=== PATIENT | male | born 1955 | race Caucasian/White ===

== ENCOUNTER 2018-08-07 11:21 | Emergency (ER) | payer MEDICAID, OTHER ==
[2018-08-07 11:33] VITALS: BP 129/82; PULSE 92; RESP 18; TEMP 98.3; O2SAT 98
[2018-08-07] MEDS ORDERED: Lidocaine 5% Patch TD STA (12:00)
[2018-08-07] MEDS ORDERED: Acetaminophen-Codeine 300/30 mg Tab PO STA (12:00)
[2018-08-07] MEDS ORDERED: Acetaminophen-Codeine 300/30 mg Tab PO ONE (12:08)
[2018-08-07] MEDS ORDERED: Lidocaine 5% Patch TD ONE (12:08)
--- NOTE | 2018-08-07 12:09 | C.PDOC ---
History Of Present Illness 62 year old male with no prior medical problems presents to the ED for evaluation of sudden onset of lower back pain s/p bending over to slat pickler an object 2 days ago. The patient reports bending over to slat pickler an object and suddenly feeling pain to his lower back. He admits to taking Motrin with no relief in symptoms. Denies weakness, numbness, tingling, incontinence to urine or stool, saddle anesthesia, and any other associated symptoms. Time Seen by Provider: 08/07/18 11:55 Chief Complaint (Nursing): Back Pain History Per: Patient History/Exam Limitations: no limitations Onset/Duration Of Symptoms: Days Current Symptoms Are (Timing): Still Present Past Medical History Reviewed: Historical Data, Nursing Documentation, Vital Signs Vital Signs: Last Vital Signs Temp 98.3 F 08/07/18 11:30 Pulse 92 H 08/07/18 11:30 Resp 18 08/07/18 11:30 BP 129/82 08/07/18 11:30 Pulse Ox 98 08/07/18 11:30 Family History: States: Unknown Family Hx - Social History Hx Tobacco Use: No Hx Alcohol Use: No Hx Substance Use: No - Immunization History Hx Tetanus Toxoid Vaccination: No Hx Influenza Vaccination: No Hx Pneumococcal Vaccination: No Review Of Systems Except As Marked, All Systems Reviewed And Found Negative. Musculoskeletal: Positive for: Other (lower back pain. ) Physical Exam - Physical Exam Appears: Non-toxic, No Acute Distress Skin: Normal Color, Warm, Dry Head: Atraumatic, Normacephalic Eye(s): bilateral: Normal Inspection, PERRL, EOMI Nose: Normal Oral Mucosa: Moist Neck: Supple Chest: Symmetrical Cardiovascular: Rhythm Regular, No Murmur Respiratory: Normal Breath Sounds, No Rales, No Rhonchi, No Wheezing Back: No Vertebral Tenderness, Paraspinal Tenderness Extremity: Bilateral: Atraumatic, Normal Color And Temperature, Normal ROM, Other ((-) straight leg test. ) Neurological/Psych: Oriented x3, Normal Speech, Normal Motor, Normal Sensation, Normal Reflexes ED Course And Treatment O2 Sat by Pulse Oximetry: 98 (RA) Pulse Ox Interpretation: Normal - Other Rad LS x-ray X-Ray: Interpreted by Me, Viewed By Me Interpretation: preliminary reading: no fracture, no dislocation, no active disease. Medical Decision Making Medical Decision Making: Assessment: lower back pain Plan: -Flexeril -Lidoderm -Motrin -Tylenol/Codeine -LS AP/LAT x-ray Progress/Update: X-ray: preliminary reading no fracture, no dislocation, no active disease. reviewed radiology reading and no report of cancer in patient history. Patient stable for discharge home. Prescribed Naproxen, Lidoderm, and Cyclobenzaprine HCl Disposition Counseled Patient/Family Regarding: Studies Performed, Diagnosis, Need For Followup, Rx Given - Disposition Referrals: [facility] [Outside] Disposition: HOME/ ROUTINE Disposition Time: 12:21 Condition: STABLE Additional Instructions: follow up with medical clinic within 2 days call to make an appointment take medications as needed for pain no heavy lifting return to ER if symptoms worsens or progress Prescriptions: Cyclobenzaprine [Cyclobenzaprine HCl] 10 mg PO TID PRN #12 tab PRN Reason: Muscle Spasm Lidocaine 5% [Lidoderm] 1 ea TD DAILY PRN #10 patch PRN Reason: Pain, Moderate (4-7) Naproxen [Naprosyn] 500 mg PO BID PRN #16 tab PRN Reason: Pain, Moderate (4-7) Instructions: Low Back Pain in Adults Forms: Gen Discharge Inst Fijian, [employer] Connect (Fijian), Work Excuse Print Language: KHMER - Clinical Impression Clinical Impression: Low back pain - Scribe Statement The provider has reviewed the documentation as recorded by the Scribe (Estefany Blakely) Provider Attestation: All medical record entries made by the Scribe were at my direction and personally dictated by me. I have reviewed the chart and agree that the record accurately reflects my personal performance of the history, physical exam, medical decision making, and the department course for this patient. I have also personally directed, reviewed, and agree with the discharge instructions and disposition.
--- NOTE | 2018-08-07 13:04 | RAD ---
Date of service: 08/07/2018 PROCEDURE: Radiographs of the Lumbar Spine. HISTORY: back pain COMPARISON: No prior. FINDINGS: BONES: There is diffuse bone demineralization and multilevel degenerative changes in the spine. There is normal alignment of the lumbar vertebral bodies. There is normal lumbar lordosis. There is no acute fracture, spondylolysis or spondylolisthesis. Bone mineralization is normal. DISC SPACES: The disc heights are maintained. OTHER FINDINGS: No pathologic soft tissue calcifications. There is a focal area of sclerosis along the inferior left sacroiliac joint IMPRESSION: No acute fracture, spondylolysis or spondylolisthesis. Focal area of sclerosis along the inferior left sacroiliac joint is nonspecific and could represent a large bone island however sclerotic metastasis is also a considerations. Correlation with known or suspected history of cancer is advised and if clinically indicated radionuclide scan may be performed for definitive evaluation.
== END 2018-08-07 12:29 | disposition home or self-care (01) ==
LOC: C.ER 11:21
DX: M54.5 Low back pain (principal)

== ENCOUNTER 2018-10-08 11:35 | Inpatient (IN) | payer SELFPAY ==
[2018-10-08 11:37] VITALS: BMI 25.8
--- NOTE | 2018-10-08 11:48 | C.PDOC ---
History Of Present Illness 64 y/o male brought in by EMS for Code Heart, initiated at 11:12 am prior to EMS arrival. 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 Dr. Can notified. Patient received 325 mg Aspirin en route. On arrival patient reports having chest pain since 7:00am described as pressure- like. Associated with SOB. He denies any nausea, vomiting, diaphoresis, abdomina l pain, dizziness, headache, or other complaints. Patient admits to smoking. No known medical history. Time Seen by Provider: 10/08/18 11:35 Chief Complaint (Nursing): Chest Pain History Per: Patient History/Exam Limitations: no limitations Onset/Duration Of Symptoms: Hrs Current Symptoms Are (Timing): Still Present Quality: Pressure Associated Symptoms: Dyspnea Modifying Factors: None Additional History Per: EMS Past Medical History Reviewed: Historical Data, Nursing Documentation, Vital Signs Vital Signs: Last Vital Signs Temp Pulse 77 10/08/18 11:35 Resp 24 10/08/18 11:35 BP 172/118 H 10/08/18 11:35 Pulse Ox 100 10/08/18 11:35 - Medical History PMH: No Chronic Diseases Family History: States: Unknown Family Hx - Social History Hx Tobacco Use: Yes Hx Alcohol Use: No Hx Substance Use: No - Immunization History Hx Tetanus Toxoid Vaccination: No Hx Influenza Vaccination: No Hx Pneumococcal Vaccination: No Review Of Systems Except As Marked, All Systems Reviewed And Found Negative. Constitutional: Negative for: Fever, Sweats Eyes: Negative for: Vision Change Cardiovascular: Positive for: Chest Pain Respiratory: Positive for: Shortness of Breath. Negative for: Cough Gastrointestinal: Negative for: Nausea, Vomiting, Abdominal Pain Musculoskeletal: Negative for: Back Pain Neurological: Negative for: Headache, Dizziness Physical Exam - Physical Exam Appears: Non-toxic, No Acute Distress Skin: Warm, Dry, No Diaphoretic Head: Atraumatic, Normacephalic Eye(s): bilateral: Normal Inspection, PERRL, EOMI Neck: Normal ROM Chest: Symmetrical, No Deformity, No Tenderness Cardiovascular: Rhythm Regular, No Murmur Respiratory: Normal Breath Sounds, No Rales, No Rhonchi, No Wheezing Gastrointestinal/Abdominal: Soft, No Tenderness, No Distention Back: Normal Inspection Extremity: Bilateral: Atraumatic, Normal Color And Temperature Pulses: Left Radial: Normal, Right Radial: Normal Neurological/Psych: Oriented x3 ED Course And Treatment - Laboratory Results Result Diagrams: 10/08/18 11:44 O2 Sat by Pulse Oximetry: 100 (RA) Pulse Ox Interpretation: Normal Medical Decision Making Medical Decision Making: Impression: Acute TN EKG: NSR with normal intervals, normal axis, with ST elevations in leads 2, 3, avF, v4-6 Administered Brilenta. Disposition Discussed With Dr.: Lupe Lima Doctor Will See Patient In The: ED Counseled Patient/Family Regarding: Studies Performed, Diagnosis - Disposition Disposition: HOSPITALIZED Disposition Time: 11:53 Condition: FAIR Forms: [employer] Connect (Emirati) - Clinical Impression Clinical Impression: STEMI (ST elevation myocardial infarction) - Scribe Statement The provider has reviewed the documentation as recorded by the Patricia Najera Provider Attestation: All medical record entries made by the Ronaldoibtara were at my direction and personally dictated by me. I have reviewed the chart and agree that the record accurately reflects my personal performance of the history, physical exam, medical decision making, and the department course for this patient. I have also personally directed, reviewed, and agree with the discharge instructions and disposition.
[2018-10-08 11:49] LABS: BASO % 0.3 % (0.0-2.0); EOS % 0.1 % (0.0-4.0); HEMOGLOBIN 16.2 g/dL (12.0-18.0); LYMPH # 1.2 K/uL (1.0-4.3); LYMPH % 9.9 % (20.0-40.0); MEAN CELL VOLUME 101.7 fL (80.0-94.0); MEAN CORPUSCULAR HEMOGLOBIN 33.6 pg (27.0-31.0); MEAN CORPUSCULAR HGB CONC 33.1 g/dL (33.0-37.0); MEAN PLATELET VOLUME 8.9 fL (7.2-11.7); MONO # 0.3 K/uL (0.0-0.8); MONO % 2.8 % (0.0-10.0); NEUT # 10.7 K/uL (1.8-7.0); NEUT % 86.9 % (50.0-75.0); NRBC % 0.1 % (0.0-2.0); PLATELET COUNT 294 K/uL (130-400); RBC 4.83 Mil/uL (4.40-5.90); RED CELL DISTRIBUTION WIDTH 13.8 % (11.5-14.5); WHITE BLOOD COUNT 12.3 K/uL (4.8-10.8)
[2018-10-08] MEDS ORDERED: Iodixanol 320 MG/ML 200 ML BOTTLE IV ONE (11:49)
[2018-10-08 11:57] LABS: PROTHROMBIN TIME 11.2 SECONDS (9.7-12.2)
[2018-10-08] MEDS ORDERED: Lidocaine 2% MPF (5 ml) Inj ONE (11:58)
[2018-10-08 12:05] LABS: LYMPHOCYTE 4 % (20-40); MONOCYTE 3 % (0-10); NEUTROPHIL 93 % (50-75); PLATELET ESTIMATE NORMAL (NORMAL); TOTAL CELLS COUNTED 100
--- NOTE | 2018-10-08 12:06 | CP.PCM.PN ---
<Joe Bearden - Last Filed: 10/08/18 11:58> Subjective - Date & Time of Evaluation Date of Evaluation: 10/08/18 Time of Evaluation: 11:00 - Subjective Subjective: House Doctor note for CODE HEART Patient is 63 year old male with no pmhx, brought from field by EMS complaining of chest tightness and nonradiating chest pain 6/8 upon awakening, chills and nausea, started this morning at 7 am, patient did not lose consciousness, EKG in field remarkable for inferior and anterior lateral ST elevation changes. Received ASA in the field. As per step daughter, patient does not take medication at home, no allergies, smokes cigarettes, does not know the amount. 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 Patient and family explained of the procedure. consent signed by patient for cath and anesthesia, in chart. Objective - Vital Signs/Intake and Output Vital Signs (last 24 hours): Temp Pulse Resp BP Pulse Ox 62 18 105/85 100 10/08/18 11:48 10/08/18 11:48 10/08/18 11:48 10/08/18 11:53 - Labs Labs: 10/08/18 11:44 PT 11.2 SECONDS (9.7-12.2) 10/08/18 11:44 INR 1.0 10/08/18 11:44 APTT 56 SECONDS (21-34) H 10/08/18 11:44 - Constitutional Appears: Non-toxic - Head Exam Head Exam: ATRAUMATIC, NORMAL INSPECTION, NORMOCEPHALIC - Eye Exam Eye Exam: EOMI, Normal appearance - ENT Exam ENT Exam: Mucous Membranes Moist - Neck Exam Neck Exam: Normal Inspection - Respiratory Exam Respiratory Exam: absent: Rales, Rhonchi, Wheezes - Cardiovascular Exam Cardiovascular Exam: REGULAR RHYTHM, +S1, +S2 - GI/Abdominal Exam GI & Abdominal Exam: Soft - Neurological Exam Neurological Exam: Alert, Awake, Oriented x3 - Psychiatric Exam Psychiatric exam: Anxious - Skin Skin Exam: Dry, Intact, Normal Color, Warm <Lupe Lima V - Last Filed: 10/08/18 20:52> Objective - Vital Signs/Intake and Output Vital Signs (last 24 hours): Temp Pulse Resp BP Pulse Ox 98.1 F 61 27 H 151/99 H 100 10/08/18 16:00 10/08/18 20:01 10/08/18 20:01 10/08/18 20:01 10/08/18 20:01 Intake and Output: 10/08/18 10/09/18 18:59 06:59 Intake Total 381.9 61.7 Output Total 375 Balance 6.9 61.7 - Medications Medications: Current Medications Acetaminophen (Tylenol 325mg Tab) 650 mg PO Q6 PRN PRN Reason: Pain, moderate (4-7) Aspirin (Ecotrin) 81 mg PO DAILY COUNTS INCLUDE 234 BEDS AT THE [facility] Dextrose (Dextrose 50% Inj) 0 ml IV STAT PRN; Protocol PRN Reason: Hypoglycemia Protocol Dextrose (Glutose 15) 0 gm PO ONCE PRN; Protocol PRN Reason: Hypoglycemia Protocol Enalapril Maleate (Vasotec) 2.5 mg PO DAILY COUNTS INCLUDE 234 BEDS AT THE [facility] Glucagon (Glucagen Diagnostic Kit) 0 mg IM STAT PRN; Protocol PRN Reason: Hypoglycemia Protocol Eptifibatide (Integrilin) 75 mg in 100 mls @ 11.612 mls/hr IV .Q8H37M COUNTS INCLUDE 234 BEDS AT THE [facility] Stop: 10/09/18 00:46 Last Admin: 10/08/18 13:42 Dose: 11.612 mls/hr Sodium Chloride (Sodium Chloride 0.9%) 500 mls @ 50 mls/hr IV .Q10H COUNTS INCLUDE 234 BEDS AT THE [facility] Last Admin: 10/08/18 13:45 Dose: 50 mls/hr Dextrose (Dextrose 5% In Water 1000 Ml) 1,000 mls @ 0 mls/hr IV .Q0M PRN; Protocol PRN Reason: Hypoglycemia Protocol Rosuvastatin Calcium (Crestor) 20 mg PO HS NIC Ticagrelor (Brilinta) 90 mg PO BID COUNTS INCLUDE 234 BEDS AT THE [facility] Last Admin: 10/08/18 17:23 Dose: 90 mg - Labs Labs: 10/08/18 11:44 10/08/18 11:44 PT 11.2 SECONDS (9.7-12.2) 10/08/18 11:44 INR 1.0 10/08/18 11:44 APTT 56 SECONDS (21-34) H 10/08/18 11:44 Attending/Attestation - Attestation I have personally seen and examined this patient.: Yes I have fully participated in the care of the patient.: Yes I have reviewed all pertinent clinical information, including history, physical exam and plan: Yes Notes (Text): Brief hospitalist note Read: code heart Patient seen at [facility]. Responded to code heart as part of [facility] protocol. Patient is a 63-year-old male noted to have chest pain early this morning at approximately 730 per EMS as per as per as well as a stepdaughter at bedside. Patient given aspirin 325 en route per EMS. 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 Bearden in [place] we have described the cardiac cath risks involved as well as sedation and risks involved in regards to patient's having had a heart attack requiring a cardiac catheter immediately. I also spoke with patient's stepdaughter who is present at bedside as well. Interventional cardiology arrived on scene. Per management per interventional cardiology
[2018-10-08 12:07] LABS: ALB/GLOB RATIO 1.4 (1.0-2.1); ALBUMIN 4.8 g/dL (3.5-5.0); ALT/SGPT 71 U/L (21-72); AST/SGOT 98 U/L (17-59); BLOOD UREA NITROGEN 19 mg/dL (9-20); CALCIUM 9.1 mg/dl (8.6-10.4); GFR NON-AFRICAN AMERICAN > 60
[2018-10-08] MEDS ORDERED: Eptifibatide 0.75 mg/ml 75 MG/100 ML BOTTLE IV ONE (12:33)
[2018-10-08] MEDS ORDERED: Eptifibatide 20 mg/10mL Inj IVP ONE (12:33)
--- NOTE | 2018-10-08 12:42 | CP.PCM.CON ---
History of Present Illness - History of Present Illness History of Present Illness: Patient with Acute Infero-lateral Myocardial infarction. Past Patient History - Infectious Disease Hx of Infectious Diseases: None - Past Social History Smoking Status: Heavy Smoker > 10 Cigarettes Daily - PSYCHIATRIC Hx Substance Use: No - SURGICAL HISTORY Hx Surgeries: No - ANESTHESIA Hx Anesthesia: No Meds Home Medications: Home Medication List Medication Instructions Recorded Confirmed Type Aspirin [Ecotrin] 81 mg PO DAILY #30 tabec 10/10/18 Rx Clopidogrel Bisulfate [Plavix] 75 mg PO DAILY #30 tablet 10/10/18 Rx Losartan [Cozaar] 25 mg PO DAILY #30 tab 10/10/18 Rx Metoprolol Succinate XL [Toprol XL] 12.5 mg PO DAILY #30 tab 10/10/18 Rx Rosuvastatin Calcium [Crestor] 20 mg PO HS #30 tab 10/10/18 Rx Allergies/Adverse Reactions: Allergies Allergy/AdvReac Type Severity Reaction Status Date / Time No Known Allergies Allergy Verified 10/08/18 11:37 Results - Vital Signs Recent Vital Signs: Last Vital Signs Temp Pulse 62 10/08/18 11:48 Resp 18 10/08/18 11:48 BP 105/85 10/08/18 11:48 Pulse Ox 100 10/08/18 11:53 - Labs Result Diagrams: 10/10/18 09:05 10/10/18 09:05 Labs: Laboratory Results - last 24 hr 10/08/18 10/08/18 10/08/18 11:44 11:44 11:44 WBC 12.3 H RBC 4.83 Hgb 16.2 Hct 49.1 MCV 101.7 H MCH 33.6 H MCHC 33.1 RDW 13.8 Plt Count 294 MPV 8.9 Neut % (Auto) 86.9 H Lymph % (Auto) 9.9 L [place] % (Auto) 2.8 Eos % (Auto) 0.1 Baso % (Auto) 0.3 Neut # (Auto) 10.7 H Lymph # (Auto) 1.2 [place] # (Auto) 0.3 Eos # (Auto) 0.0 Baso # (Auto) 0.0 Neutrophils % (Manual) 93 H Lymphocytes % (Manual) 4 L Monocytes % (Manual) 3 Platelet Estimate Normal RBC Morphology Normal PT 11.2 INR 1.0 APTT 56 H Sodium 140 Potassium 4.6 Chloride 102 Carbon Dioxide 25 Anion Gap 18 BUN 19 Creatinine 0.9 Est GFR ( Amer) > 60 Est GFR (Non-Af Amer) > 60 Random Glucose 210 H Calcium 9.1 Total Bilirubin 0.5 AST 98 H ALT 71 Alkaline Phosphatase 131 H Lactate Dehydrogenase 645 H Total Creatine Kinase 242 H Total Protein 8.2 Albumin 4.8 Globulin 3.5 Albumin/Globulin Ratio 1.4 Blood Type Antibody Screen 10/08/18 11:52 WBC RBC Hgb Hct MCV MCH MCHC RDW Plt Count MPV Neut % (Auto) Lymph % (Auto) [place] % (Auto) Eos % (Auto) Baso % (Auto) Neut # (Auto) Lymph # (Auto) [place] # (Auto) Eos # (Auto) Baso # (Auto) Neutrophils % (Manual) Lymphocytes % (Manual) Monocytes % (Manual) Platelet Estimate RBC Morphology PT INR APTT Sodium Potassium Chloride Carbon Dioxide Anion Gap BUN Creatinine Est GFR ( Amer) Est GFR (Non-Af Amer) Random Glucose Calcium Total Bilirubin AST ALT Alkaline Phosphatase Lactate Dehydrogenase Total Creatine Kinase Total Protein Albumin Globulin Albumin/Globulin Ratio Blood Type O POSITIVE Antibody Screen Negative Assessment & Plan (1) STEMI (ST elevation myocardial infarction) Assessment and Plan: DAPT compliance and risk factor modification. Status: Acute
--- NOTE | 2018-10-08 13:19 | CP.PCM.HP ---
<EsterDaren - Last Filed: 10/08/18 15:51> History of Present Illness - History of Present Illness History of Present Illness: This is a 63 year old male, originally from [place], with past medical hx of personal tobacco abuse, also significant secondhand smoke exposure, presenting today with chief complaint of chest pain. Pt brought in by EMS. Patient is frisian speaking only. Hx obtained through step daughter. Pt says that as patient was getting ready for work this morning around 7:30 am, began feeling some chest tightness and pressure and overall not feeling right. Reports this has never happened before. Reports pain was diffuse across chest with no radiation to jaw or arm. Pain was constant with severity of 9/10. Patient did not take any medications at home to alleviate pain. Initially patient was going to ride it out but began shaking and feeling pale, decision was made to call ambulance. PMD: None; reports he has not seen a doctor in an outpatient setting in many years. PMH: Tobacco abuse, secondhand smoke exposure () PSH: Denies Allergies: NKDA FH: Mother- Father- Reports family hx of DM. Otherwise denies hx of heart dx, cancer, etc. Current medications: None Social hx: Current smoker. Cutting down now but but pack per day for over 20 yrs. Social drinker. No drug use. Born in [place]. 7 children. 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 Prior visits: Recent ER visit 07/2018 for lower back pain. No prior admissions. Code status: Stepdaughter reports this has not been discussed yet. Advance directive: None Healthcare proxy: None. Present on Admission - Present on Admission Any Indicators Present on Admission: No History of DVT/PE: No History of Uncontrolled Diabetes: No Urinary Catheter: No Decubitus Ulcer Present: No Review of Systems - Constitutional Constitutional: absent: Anorexia, Fever - EENT Eyes: absent: Blurred Vision, Change in Vision Ears: absent: Decreased Hearing, Tinnitus Nose/Mouth/Throat: absent: Nasal Congestion, Nasal Discharge - Cardiovascular Cardiovascular: Chest Pain, Chest Pain at Rest, Dyspnea - Respiratory Respiratory: Dyspnea. absent: Cough - Gastrointestinal Gastrointestinal: absent: Abdominal Pain, Bloating - Genitourinary Genitourinary: absent: Change in Urinary Stream, Difficulty Urinating - Musculoskeletal Musculoskeletal: absent: Abnormal Gait, Back Pain - Integumentary Integumentary: absent: Rash - Neurological Neurological: absent: Syncope - Psychiatric Psychiatric: absent: Hallucinations, Visual Hallucinations, Tactile Hallucinations - Endocrine Endocrine: absent: Polyphagia, Polyuria - Hematologic/Lymphatic Hematologic: absent: Easy Bleeding, Easy Bruising Past Patient History - Infectious Disease Hx of Infectious Diseases: None - Tetanus Immunizations Tetanus Immunization: Unknown - Past Medical History & Family History Past Medical History?: Yes Pertinent Family History: DM in family - Past Social History Smoking Status: Heavy Smoker > 10 Cigarettes Daily Chewing Tobacco Use: No Cigar Use: No Alcohol: Social Drugs: Denies Home Situation {Lives}: With Family Domestic Violence: Negative - PSYCHIATRIC Hx Substance Use: No - SURGICAL HISTORY Hx Surgeries: No - ANESTHESIA Hx Anesthesia: No Meds Allergies/Adverse Reactions: Allergies Allergy/AdvReac Type Severity Reaction Status Date / Time No Known Allergies Allergy Verified 10/08/18 11:37 Physical Exam - Constitutional Appears: Non-toxic, No Acute Distress - Head Exam Head Exam: ATRAUMATIC, NORMAL INSPECTION, NORMOCEPHALIC - Eye Exam Eye Exam: EOMI - ENT Exam ENT Exam: Mucous Membranes Moist - Neck Exam Neck exam: Positive for: Full Rom, Normal Inspection - Respiratory Exam Respiratory Exam: NORMAL BREATHING PATTERN. absent: Respiratory Distress - Cardiovascular Exam Cardiovascular Exam: REGULAR RHYTHM, +S1, +S2 - GI/Abdominal Exam GI & Abdominal Exam: Normal Bowel Sounds, Soft. absent: Tenderness - Extremities Exam Extremities exam: Positive for: full ROM, normal inspection - Neurological Exam Neurological exam: Alert, CN II-XII Intact, Oriented x3 - Psychiatric Exam Psychiatric exam: Flat Affect - Skin Skin Exam: Dry, Intact, Normal Color, Warm Additional comments: dressing right groin clean, dry, intact Results - Vital Signs Recent Vital Signs: Last Vital Signs Temp Pulse 62 10/08/18 11:48 Resp 18 10/08/18 11:48 BP 105/85 10/08/18 11:48 Pulse Ox 100 10/08/18 11:53 - Labs Result Diagrams: 10/08/18 11:44 10/08/18 11:44 Labs: Laboratory Results - last 24 hr 10/08/18 10/08/18 10/08/18 11:44 11:44 11:44 WBC 12.3 H RBC 4.83 Hgb 16.2 Hct 49.1 MCV 101.7 H MCH 33.6 H MCHC 33.1 RDW 13.8 Plt Count 294 MPV 8.9 Neut % (Auto) 86.9 H Lymph % (Auto) 9.9 L [place] % (Auto) 2.8 Eos % (Auto) 0.1 Baso % (Auto) 0.3 Neut # (Auto) 10.7 H Lymph # (Auto) 1.2 [place] # (Auto) 0.3 Eos # (Auto) 0.0 Baso # (Auto) 0.0 Neutrophils % (Manual) 93 H Lymphocytes % (Manual) 4 L Monocytes % (Manual) 3 Platelet Estimate Normal RBC Morphology Normal PT 11.2 INR 1.0 APTT 56 H Sodium 140 Potassium 4.6 Chloride 102 Carbon Dioxide 25 Anion Gap 18 BUN 19 Creatinine 0.9 Est GFR ( Amer) > 60 Est GFR (Non-Af Amer) > 60 Random Glucose 210 H Calcium 9.1 Total Bilirubin 0.5 AST 98 H ALT 71 Alkaline Phosphatase 131 H Lactate Dehydrogenase 645 H Total Creatine Kinase 242 H Troponin I 0.4660 H* Total Protein 8.2 Albumin 4.8 Globulin 3.5 Albumin/Globulin Ratio 1.4 Blood Type Antibody Screen 10/08/18 11:52 WBC RBC Hgb Hct MCV MCH MCHC RDW Plt Count MPV Neut % (Auto) Lymph % (Auto) [place] % (Auto) Eos % (Auto) Baso % (Auto) Neut # (Auto) Lymph # (Auto) [place] # (Auto) Eos # (Auto) Baso # (Auto) Neutrophils % (Manual) Lymphocytes % (Manual) Monocytes % (Manual) Platelet Estimate RBC Morphology PT INR APTT Sodium Potassium Chloride Carbon Dioxide Anion Gap BUN Creatinine Est GFR ( Amer) Est GFR (Non-Af Amer) Random Glucose Calcium Total Bilirubin AST ALT Alkaline Phosphatase Lactate Dehydrogenase Total Creatine Kinase Troponin I Total Protein Albumin Globulin Albumin/Globulin Ratio Blood Type O POSITIVE Antibody Screen Negative Assessment & Plan - Assessment and Plan (Free Text) Assessment: This is a 63 yo male, originally from [place], with past medical hx of tobacco abuse, presenting with 1. Acute ST segment elevation CO -ekg consistent with acute infero-lateral CO -pt brought in by EMS -code heart activated -code heart readiness paraprofessional doctor notified. Dr. Can. -pt consented for cardiac cath and transported to cardiac medical lab technician -stent placed in RCA, full report pending -start enalapril 2.5 mg po daily -start eptifibatide drip -start rosuvasatin 20 mg po hs -start ticagrelor 90 mg po bid -start asa 81 mg po daily -IV NS -lipid panel -HGB a1C 2. Hx of tobacco abuse -encourage smoking cessation 3. GI/DVT ppx -no GI indicated -on eptifibatide drip and ticagrelor discussed with Dr. Lima. <Lupe Lima V - Last Filed: 10/08/18 21:09> Results - Vital Signs Recent Vital Signs: Last Vital Signs Temp 98.1 F 10/08/18 16:00 Pulse 61 10/08/18 20:01 Resp 27 H 10/08/18 20:01 BP 151/99 H 10/08/18 20:01 Pulse Ox 100 10/08/18 20:01 - Labs Result Diagrams: 10/08/18 11:44 10/08/18 11:44 Labs: Laboratory Results - last 24 hr 10/08/18 10/08/18 10/08/18 11:44 11:44 11:44 WBC 12.3 H RBC 4.83 Hgb 16.2 Hct 49.1 MCV 101.7 H MCH 33.6 H MCHC 33.1 RDW 13.8 Plt Count 294 MPV 8.9 Neut % (Auto) 86.9 H Lymph % (Auto) 9.9 L [place] % (Auto) 2.8 Eos % (Auto) 0.1 Baso % (Auto) 0.3 Neut # (Auto) 10.7 H Lymph # (Auto) 1.2 [place] # (Auto) 0.3 Eos # (Auto) 0.0 Baso # (Auto) 0.0 Neutrophils % (Manual) 93 H Lymphocytes % (Manual) 4 L Monocytes % (Manual) 3 Platelet Estimate Normal RBC Morphology Normal PT 11.2 INR 1.0 APTT 56 H Sodium 140 Potassium 4.6 Chloride 102 Carbon Dioxide 25 Anion Gap 18 BUN 19 Creatinine 0.9 Est GFR ( Amer) > 60 Est GFR (Non-Af Amer) > 60 Random Glucose 210 H Calcium 9.1 Total Bilirubin 0.5 AST 98 H ALT 71 Alkaline Phosphatase 131 H Lactate Dehydrogenase 645 H Total Creatine Kinase 242 H CK-MB (Mass) Troponin I 0.4660 H* Total Protein 8.2 Albumin 4.8 Globulin 3.5 Albumin/Globulin Ratio 1.4 Blood Type Antibody Screen 10/08/18 10/08/18 11:52 16:09 WBC RBC Hgb Hct MCV MCH MCHC RDW Plt Count MPV Neut % (Auto) Lymph % (Auto) [place] % (Auto) Eos % (Auto) Baso % (Auto) Neut # (Auto) Lymph # (Auto) [place] # (Auto) Eos # (Auto) Baso # (Auto) Neutrophils % (Manual) Lymphocytes % (Manual) Monocytes % (Manual) Platelet Estimate RBC Morphology PT INR APTT Sodium Potassium Chloride Carbon Dioxide Anion Gap BUN Creatinine Est GFR ( Amer) Est GFR (Non-Af Amer) Random Glucose Calcium Total Bilirubin AST ALT Alkaline Phosphatase Lactate Dehydrogenase Total Creatine Kinase 7771 H CK-MB (Mass) 346 H Troponin I 232.0000 H* Total Protein Albumin Globulin Albumin/Globulin Ratio Blood Type O POSITIVE Antibody Screen Negative Attending/Attestation - Attestation I have personally seen and examined this patient.: Yes I have fully participated in the care of the patient.: Yes I have reviewed all pertinent clinical information: Yes Notes (Text): Patient seen, examined, case discussed with medical instructor. Patient patient presented a code heart. Patient seen and case discussed with both managed services sales consultant and intensive care. 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 He does not take any medications per family. Patient was accompanied to Shovel Mechanic. I described risks and benefits of Shovel Mechanic procedure as well as sedation with the help of translation with my Maltese-speaking resident Dr. Bearden. But despite nurse Boone in the emergency room. Patient consented to both catheter and sedation if needed. Patient stabilized from cath following suit management per interventional cardiology. Patient was transferred to the intensive care following Shovel Mechanic procedure. Patient on EKG at time of code heart was anterior inferior lateral CO. Noted for RCA involvement. 1. Acute coronary syndrome Assessment/plan * Code heart on October 08, 2018. * Management per interventional cardiology. * Patient stabilized and taken to the intensive care following a Shovel Mechanic procedure * Patient to be observed in the ICU * Echo ordered lipid panel * TSH, A1c ordered for tomorrow. * Cardiology on board. * Patient to be observed in the intensive care unit. * Patient is currently on integrilin drip * Aspirin 81mg PO daily * Brilinta 90mg PO BID * Crestor 20mg PO qHS * d/c Lisinopril to Losartan 25mg Po daily (given increase cancer risk with lisinopril) * likely need beta jh assess tomorrow 2. Tobacco abuse Assessment/plan * Nicotine patch daily * patient will need extensive counseling regards to tobacco abuse and associated adverse events including but not limited to premature aging cancer risk and ultimately . 3. Prophylactic measure Assessment/plan * Integrilin drip per cardio. * Pepcid 20 mg p.o. once a day * IV fluids
--- NOTE | 2018-10-08 13:20 | CP.PCM.CON ---
<Gabe Klein M - Last Filed: 10/08/18 14:29> History of Present Illness - History of Present Illness History of Present Illness: Critical care consult Note for Dr. Adrianan Moss Consult for Post PCI w/ stent placement 63 M w/ PMHx of tobacco use disorder presented to the ED w/ chest pain. Per raúl mendez, patient began having non radiating chest pain w/ diaphoresis and nausea this AM. Patient was lying in bed when symptoms arose. Patient took no medication at home for relief of symptoms. Patient was brought in by EMS found to have ST elevations in inferior leads, given aspirin and CODE heart was called. Patient is post PCI treatment w/ stent in RCA. At time of examination, patient offers no complaints. Denies headaches, vision changes, chest pain, SOB, abdominal pain, nausea, vomiting, diarrhea, constipation. PMhx: none PSHx: none Meds: none Allergies: none SHx: extensive tobacco use, drinks socially, denies illicit drug use Review of Systems - Constitutional Constitutional: absent: Anorexia, Chills, Weight Loss - Cardiovascular Cardiovascular: absent: Chest Pain, Chest Pain at Rest - Respiratory Respiratory: absent: Dyspnea, Wheezing - Gastrointestinal Gastrointestinal: absent: Abdominal Pain - Genitourinary Genitourinary: absent: Hematuria, Pyuria - Musculoskeletal Musculoskeletal: absent: Arthralgias, Atrophy - Integumentary Integumentary: absent: Pruritus, Rash - Neurological Neurological: absent: Headaches, Syncope - Psychiatric Psychiatric: absent: Confusion Past Patient History - Infectious Disease Hx of Infectious Diseases: None - Tetanus Immunizations Tetanus Immunization: Unknown - Past Medical History & Family History Past Medical History?: Yes - Past Social History Smoking Status: Heavy Smoker > 10 Cigarettes Daily Chewing Tobacco Use: No Cigar Use: No - PSYCHIATRIC Hx Substance Use: No - SURGICAL HISTORY Hx Surgeries: No - ANESTHESIA Hx Anesthesia: No Meds Allergies/Adverse Reactions: Allergies Allergy/AdvReac Type Severity Reaction Status Date / Time No Known Allergies Allergy Verified 10/08/18 11:37 - Medications Medications: Current Medications Enalapril Maleate (Vasotec) 2.5 mg PO DAILY [facility] Eptifibatide (Integrilin) 75 mg in 100 mls @ 11.612 mls/hr IV .Q8H37M NIC Stop: 10/09/18 00:46 Sodium Chloride (Sodium Chloride 0.9%) 500 mls @ 50 mls/hr IV .Q10H NIC Rosuvastatin Calcium (Crestor) 20 mg PO HS NIC Ticagrelor (Brilinta) 90 mg PO BID NIC Physical Exam - Constitutional Appears: Non-toxic, No Acute Distress - Head Exam Head Exam: NORMAL INSPECTION - Eye Exam Eye Exam: EOMI, Normal appearance - ENT Exam ENT Exam: Mucous Membranes Moist - Respiratory Exam Respiratory Exam: Clear to Auscultation Bilateral, NORMAL BREATHING PATTERN. absent: Rales, Rhonchi, Wheezes - Cardiovascular Exam Cardiovascular Exam: +S1, +S2 - GI/Abdominal Exam GI & Abdominal Exam: Normal Bowel Sounds, Soft - Extremities Exam Extremities exam: Positive for: full ROM, normal inspection. Negative for: calf tenderness, pedal edema - Back Exam Back exam: absent: CVA tenderness (L), CVA tenderness (R) - Neurological Exam Neurological exam: Alert, Oriented x3 - Psychiatric Exam Psychiatric exam: Normal Affect, Normal Mood - Skin Skin Exam: Dry, Intact, Normal Color, Warm Results - Vital Signs Recent Vital Signs: Last Vital Signs Temp Pulse 62 10/08/18 11:48 Resp 18 10/08/18 11:48 BP 105/85 10/08/18 11:48 Pulse Ox 100 10/08/18 11:53 - Labs Result Diagrams: 10/08/18 11:44 10/08/18 11:44 Labs: Laboratory Results - last 24 hr 10/08/18 10/08/18 10/08/18 11:44 11:44 11:44 WBC 12.3 H RBC 4.83 Hgb 16.2 Hct 49.1 MCV 101.7 H MCH 33.6 H MCHC 33.1 RDW 13.8 Plt Count 294 MPV 8.9 Neut % (Auto) 86.9 H Lymph % (Auto) 9.9 L [place] % (Auto) 2.8 Eos % (Auto) 0.1 Baso % (Auto) 0.3 Neut # (Auto) 10.7 H Lymph # (Auto) 1.2 [place] # (Auto) 0.3 Eos # (Auto) 0.0 Baso # (Auto) 0.0 Neutrophils % (Manual) 93 H Lymphocytes % (Manual) 4 L Monocytes % (Manual) 3 Platelet Estimate Normal RBC Morphology Normal PT 11.2 INR 1.0 APTT 56 H Sodium 140 Potassium 4.6 Chloride 102 Carbon Dioxide 25 Anion Gap 18 BUN 19 Creatinine 0.9 Est GFR ( Amer) > 60 Est GFR (Non-Af Amer) > 60 Random Glucose 210 H Calcium 9.1 Total Bilirubin 0.5 AST 98 H ALT 71 Alkaline Phosphatase 131 H Lactate Dehydrogenase 645 H Total Creatine Kinase 242 H Troponin I 0.4660 H* Total Protein 8.2 Albumin 4.8 Globulin 3.5 Albumin/Globulin Ratio 1.4 Blood Type Antibody Screen 10/08/18 11:52 WBC RBC Hgb Hct MCV MCH MCHC RDW Plt Count MPV Neut % (Auto) Lymph % (Auto) [place] % (Auto) Eos % (Auto) Baso % (Auto) Neut # (Auto) Lymph # (Auto) [place] # (Auto) Eos # (Auto) Baso # (Auto) Neutrophils % (Manual) Lymphocytes % (Manual) Monocytes % (Manual) Platelet Estimate RBC Morphology PT INR APTT Sodium Potassium Chloride Carbon Dioxide Anion Gap BUN Creatinine Est GFR ( Amer) Est GFR (Non-Af Amer) Random Glucose Calcium Total Bilirubin AST ALT Alkaline Phosphatase Lactate Dehydrogenase Total Creatine Kinase Troponin I Total Protein Albumin Globulin Albumin/Globulin Ratio Blood Type O POSITIVE Antibody Screen Negative Assessment & Plan - Assessment and Plan (Free Text) Assessment: 63M w/ no PMhx, s/p PCI w/ RCA stent Plan: Neuro - A&O x3 Cardio - s/p PCI w/ drug eluding stent - loaded w/ aspirin/ brilinta - on integrellin drip - ASA/Brilinta - NS 50 cc/hr - F/u HgA1c, lipid panel, TSH, Free T4 - F/u echo - F/u EKG Resp - vital stable - continue to monitor GI - CLD for dinner Renal - Bun/Cr - WNL - enalapril 2.5 mg PO daily resume 3/2 Heme - H/H wnl - elevated WBC - likely reactive - continue to monitor PPx - GI: no indication - DVT: on integrillin drip <Unruly Moss - Last Filed: 10/08/18 15:03> Meds - Medications Medications: Current Medications Aspirin (Ecotrin) 81 mg PO DAILY NIC Enalapril Maleate (Vasotec) 2.5 mg PO DAILY NIC Eptifibatide (Integrilin) 75 mg in 100 mls @ 11.612 mls/hr IV .Q8H37M [facility] Stop: 10/09/18 00:46 Last Admin: 10/08/18 13:42 Dose: 11.612 mls/hr Sodium Chloride (Sodium Chloride 0.9%) 500 mls @ 50 mls/hr IV .Q10H NIC Last Admin: 10/08/18 13:45 Dose: 50 mls/hr Rosuvastatin Calcium (Crestor) 20 mg PO HS NIC Ticagrelor (Brilinta) 90 mg PO BID [facility] Results - Vital Signs Recent Vital Signs: Last Vital Signs Temp 98 F 10/08/18 13:15 Pulse 56 L 10/08/18 13:45 Resp 18 10/08/18 13:45 BP 139/88 10/08/18 13:45 Pulse Ox 100 10/08/18 11:53 - Labs Result Diagrams: 10/08/18 11:44 10/08/18 11:44 Labs: Laboratory Results - last 24 hr 10/08/18 10/08/18 10/08/18 11:44 11:44 11:44 WBC 12.3 H RBC 4.83 Hgb 16.2 Hct 49.1 MCV 101.7 H MCH 33.6 H MCHC 33.1 RDW 13.8 Plt Count 294 MPV 8.9 Neut % (Auto) 86.9 H Lymph % (Auto) 9.9 L [place] % (Auto) 2.8 Eos % (Auto) 0.1 Baso % (Auto) 0.3 Neut # (Auto) 10.7 H Lymph # (Auto) 1.2 [place] # (Auto) 0.3 Eos # (Auto) 0.0 Baso # (Auto) 0.0 Neutrophils % (Manual) 93 H Lymphocytes % (Manual) 4 L Monocytes % (Manual) 3 Platelet Estimate Normal RBC Morphology Normal PT 11.2 INR 1.0 APTT 56 H Sodium 140 Potassium 4.6 Chloride 102 Carbon Dioxide 25 Anion Gap 18 BUN 19 Creatinine 0.9 Est GFR ( Amer) > 60 Est GFR (Non-Af Amer) > 60 Random Glucose 210 H Calcium 9.1 Total Bilirubin 0.5 AST 98 H ALT 71 Alkaline Phosphatase 131 H Lactate Dehydrogenase 645 H Total Creatine Kinase 242 H Troponin I 0.4660 H* Total Protein 8.2 Albumin 4.8 Globulin 3.5 Albumin/Globulin Ratio 1.4 Blood Type Antibody Screen 10/08/18 11:52 WBC RBC Hgb Hct MCV MCH MCHC RDW Plt Count MPV Neut % (Auto) Lymph % (Auto) [place] % (Auto) Eos % (Auto) Baso % (Auto) Neut # (Auto) Lymph # (Auto) [place] # (Auto) Eos # (Auto) Baso # (Auto) Neutrophils % (Manual) Lymphocytes % (Manual) Monocytes % (Manual) Platelet Estimate RBC Morphology PT INR APTT Sodium Potassium Chloride Carbon Dioxide Anion Gap BUN Creatinine Est GFR ( Amer) Est GFR (Non-Af Amer) Random Glucose Calcium Total Bilirubin AST ALT Alkaline Phosphatase Lactate Dehydrogenase Total Creatine Kinase Troponin I Total Protein Albumin Globulin Albumin/Globulin Ratio Blood Type O POSITIVE Antibody Screen Negative Assessment & Plan - Assessment and Plan (Free Text) Plan: Post PCI, Patient remains chest pain free -continue oral medciations as per cardiology -repeat EKG post PCI -obtain echo -continue to monitor - Date & Time Date: 10/08/18 Time: 15:03
[2018-10-08] MEDS: Eptifibatide 0.75 mg/ml 75 MG/100 ML BOTTLE IV SCH ×2 (13:42→20:00)
[2018-10-08] MEDS: Sodium Chloride 0.9% 500 ML IV SCH (13:45)
--- NOTE | 2018-10-08 14:25 | RAD ---
Date of service: 10/08/2018 HISTORY: Chest pain COMPARISON: No prior. FINDINGS: LUNGS: The lungs are well inflated. There is mild pulmonary venous congestion. No focal consolidation. PLEURA: No pleural effusions or pneumothorax. CARDIOVASCULAR: The heart is normal in size. There is unfolding of the aorta. No aortic atherosclerotic calcifications present. OSSEOUS STRUCTURES: Within normal limits for the patient's age. VISUALIZED UPPER ABDOMEN: Normal. OTHER FINDINGS: None. IMPRESSION: No active pulmonary disease.
[2018-10-08] MEDS ORDERED: Glucagon Recombinant 1 mg Inj IM PRN (15:53)
[2018-10-08] MEDS ORDERED: Dextrose 50% SYRINGE Inj (50 ml) IV PRN (15:53)
[2018-10-09] MEDS: Sodium Chloride 0.9% 500 ML IV SCH (00:14)
[2018-10-09 05:58] LABS: BASO % 0.1 % (0.0-2.0); EOS % 0.1 % (0.0-4.0); HEMOGLOBIN 14.4 g/dL (12.0-18.0); LYMPH # 1.8 K/uL (1.0-4.3); MEAN CELL VOLUME 101.4 fL (80.0-94.0); MEAN CORPUSCULAR HEMOGLOBIN 33.8 pg (27.0-31.0); MEAN CORPUSCULAR HGB CONC 33.3 g/dL (33.0-37.0); MEAN PLATELET VOLUME 9.9 fL (7.2-11.7); MONO # 1.6 K/uL (0.0-0.8); MONO % 10.6 % (0.0-10.0); NEUT # 11.8 K/uL (1.8-7.0); NEUT % 77.2 % (50.0-75.0); RBC 4.26 Mil/uL (4.40-5.90); RED CELL DISTRIBUTION WIDTH 13.8 % (11.5-14.5); WHITE BLOOD COUNT 15.3 K/uL (4.8-10.8)
[2018-10-09 06:18] LABS: ALB/GLOB RATIO 1.3 (1.0-2.1); ALT/SGPT 164 U/L (21-72); BLOOD UREA NITROGEN 19 mg/dL (9-20); CALCIUM 8.7 mg/dl (8.6-10.4); GFR NON-AFRICAN AMERICAN > 60; HDL CHOLESTEROL 38 mg/dL (30-70)
[2018-10-09 06:23] VITALS: RESP 20
[2018-10-09 06:25] LABS: LDL CHOLESTEROL 111 mg/dL (0-129)
[2018-10-09 06:33] LABS: AST/SGOT 716 U/L (17-59)
--- NOTE | 2018-10-09 07:52 | CP.PCM.PN ---
Subjective - Date & Time of Evaluation Date of Evaluation: 10/09/18 Time of Evaluation: 06:55 - Subjective Subjective: Medical attending note Patient seen and examined. Patient company with his figure at bedside. Patient denies any chest pain this morning. Patient denies headache denies constipation denies abdominal pain denies nausea is urinating well. Continue Gralise discontinued overnight. Patient given losartan because of high blood pressure. Did group counselor patient extensively at bedside in regards to smoking is a risk for heart disease. Awaiting labs to discuss further cardiac risk. Discussed with ICU patient is likely to be downgraded later today. Objective - Vital Signs/Intake and Output Vital Signs (last 24 hours): Temp Pulse Resp BP Pulse Ox 98.1 F 61 20 134/91 H 100 10/09/18 00:00 10/09/18 06:02 10/09/18 06:02 10/09/18 06:02 10/09/18 06:02 Intake and Output: 10/09/18 10/09/18 06:59 18:59 Intake Total 370.2 Output Total 400 Balance -29.8 - Medications Medications: Current Medications Acetaminophen (Tylenol 325mg Tab) 650 mg PO Q6 PRN PRN Reason: Pain, moderate (4-7) Aspirin (Ecotrin) 81 mg PO DAILY [facility] Dextrose (Dextrose 50% Inj) 0 ml IV STAT PRN; Protocol PRN Reason: Hypoglycemia Protocol Dextrose (Glutose 15) 0 gm PO ONCE PRN; Protocol PRN Reason: Hypoglycemia Protocol Glucagon (Glucagen Diagnostic Kit) 0 mg IM STAT PRN; Protocol PRN Reason: Hypoglycemia Protocol Dextrose (Dextrose 5% In Water 1000 Ml) 1,000 mls @ 0 mls/hr IV .Q0M PRN; Protocol PRN Reason: Hypoglycemia Protocol Losartan Potassium (Cozaar) 25 mg PO DAILY [facility] Last Admin: 10/08/18 22:49 Dose: 25 mg Nicotine (Nicoderm Cq) 1 patch TD DAILY [facility] Rosuvastatin Calcium (Crestor) 20 mg PO HS [facility] Last Admin: 10/08/18 21:25 Dose: 20 mg Ticagrelor (Brilinta) 90 mg PO BID [facility] Last Admin: 10/08/18 17:23 Dose: 90 mg - Labs Labs: 10/09/18 05:50 10/09/18 05:50 PT 11.2 SECONDS (9.7-12.2) 10/08/18 11:44 INR 1.0 10/08/18 11:44 APTT 56 SECONDS (21-34) H 10/08/18 11:44 - Constitutional Appears: Non-toxic, No Acute Distress - Head Exam Head Exam: NORMAL INSPECTION - Eye Exam Eye Exam: EOMI - ENT Exam ENT Exam: Mucous Membranes Moist - Respiratory Exam Respiratory Exam: Clear to Ausculation Bilateral, NORMAL BREATHING PATTERN. absent: Rales, Rhonchi, Wheezes - Cardiovascular Exam Cardiovascular Exam: REGULAR RHYTHM, +S1, +S2 - GI/Abdominal Exam GI & Abdominal Exam: Soft, Normal Bowel Sounds. absent: Distended, Guarding, Rigid, Tenderness, Rebound - Extremities Exam Extremities Exam: absent: Pedal Edema, Tenderness - Neurological Exam Neurological Exam: Alert, Awake, Oriented x3 - Psychiatric Exam Psychiatric exam: Normal Affect, Normal Mood - Skin Skin Exam: Dry, Intact, Normal Color, Warm Assessment and Plan (1) STEMI (ST elevation myocardial infarction) Assessment & Plan: Cardiology on consult help appreciated Echocardiogram pending Aspirin 81 mg 1 tab p.o. daily Brilinta 90 mg once a day once twice a day will need to discuss with cardiology if appropriate to switch to Plavix given patient does not have insurance Crestor on hold given transaminitis Losartan 25 once a day Start Toprol-XL 12.5 mg once a day Lipid panel reviewed noted below 80 HDL TSH is low but free T4 is normal Pending official cardiac cath report however patient did receive a drug-eluting stent to the RCA. A1c pending Status: Acute (2) Tobacco abuse Assessment & Plan: Patient counseled extensively at bedside in regards to smoking is a risk factor for heart disease he is aware he should stop smoking Nicotine patch daily Status: Acute (3) Transaminitis Assessment & Plan: Patient had an acute rise in LFTs Discontinue Tylenol and Held Crestor Hepatitis panel we will continue to trend LFTs unclear which relieved as an acute phase reactant or hyperperfusion delivered in light of a heart attack Status: Acute (4) Prophylactic measure Assessment & Plan: DVT prophylaxis heparin 5000 subcu 8 Heart healthy diet Smoking cessation provided Disposition: discussed with ICU patient downgraded by ICU to telemetry. Pending official read of echocardiogram will need to monitor LFTs will need to follow-up with cardiology in regards to switch to Plavix. Status: Acute
--- NOTE | 2018-10-09 08:44 | CP.PCM.PN ---
Subjective - Date & Time of Evaluation Date of Evaluation: 10/09/18 Time of Evaluation: 08:39 - Subjective Subjective: Patient seen and examined at bedside. Patient deneis any chest pain, denies any dizziness. Objective - Vital Signs/Intake and Output Vital Signs (last 24 hours): Temp Pulse Resp BP Pulse Ox 98.1 F 61 20 134/91 H 100 10/09/18 00:00 10/09/18 06:02 10/09/18 06:02 10/09/18 06:02 10/09/18 06:02 Intake and Output: 10/09/18 10/09/18 06:59 18:59 Intake Total 370.2 Output Total 400 Balance -29.8 - Medications Medications: Current Medications Aspirin (Ecotrin) 81 mg PO DAILY [facility] Dextrose (Dextrose 50% Inj) 0 ml IV STAT PRN; Protocol PRN Reason: Hypoglycemia Protocol Dextrose (Glutose 15) 0 gm PO ONCE PRN; Protocol PRN Reason: Hypoglycemia Protocol Glucagon (Glucagen Diagnostic Kit) 0 mg IM STAT PRN; Protocol PRN Reason: Hypoglycemia Protocol Heparin Sodium (Porcine) (Heparin) 5,000 units SC Q8 [facility] Dextrose (Dextrose 5% In Water 1000 Ml) 1,000 mls @ 0 mls/hr IV .Q0M PRN; Protocol PRN Reason: Hypoglycemia Protocol Losartan Potassium (Cozaar) 25 mg PO DAILY [facility] Last Admin: 10/08/18 22:49 Dose: 25 mg Metoprolol Succinate (Toprol Xl) 12.5 mg PO DAILY [facility] Nicotine (Nicoderm Cq) 1 patch TD DAILY [facility] Rosuvastatin Calcium (Crestor) 20 mg PO HS [facility] Last Admin: 10/08/18 21:25 Dose: 20 mg Ticagrelor (Brilinta) 90 mg PO BID [facility] Last Admin: 10/08/18 17:23 Dose: 90 mg - Labs Labs: 10/09/18 05:50 10/09/18 05:50 PT 11.2 SECONDS (9.7-12.2) 10/08/18 11:44 INR 1.0 10/08/18 11:44 APTT 56 SECONDS (21-34) H 10/08/18 11:44 - Head Exam Head Exam: ATRAUMATIC, NORMAL INSPECTION - Eye Exam Eye Exam: EOMI - ENT Exam ENT Exam: Mucous Membranes Moist - Respiratory Exam Respiratory Exam: Clear to Ausculation Bilateral, NORMAL BREATHING PATTERN - Cardiovascular Exam Cardiovascular Exam: REGULAR RHYTHM, +S1, +S2 - GI/Abdominal Exam GI & Abdominal Exam: Normal Bowel Sounds - Extremities Exam Extremities Exam: Full ROM, Normal Capillary Refill, Normal Inspection - Neurological Exam Neurological Exam: Alert, Awake, Oriented x3 Assessment and Plan - Assessment and Plan (Free Text) Assessment: CAD/Myocardial infarction -continue medications as per cardiology, dual antiplatelet, statin and ACEI -patient able to take oral medications, denies any chest pain -patient has no IV medications. -Patient remains hemodynamically stable
[2018-10-09 09:00] LABS: HEPATITIS B SURFACE AG Negative (NEGATIVE)
[2018-10-09 09:04] LABS: HEPATITIS A IGM NEGATIVE (NEGATIVE); HEPATITIS B CORE AB NEGATIVE (NEGATIVE)
[2018-10-09 09:17] LABS: HEPATITIS C ANTIBODY NEGATIVE (NEGATIVE)
[2018-10-09] MEDS: Metoprolol Succinate 12.5 mg XL Tab PO SCH (11:00)
[2018-10-09 23:52] VITALS: O2SAT 96
[2018-10-10 09:00] VITALS: BP 100/66
[2018-10-10] MEDS: Metoprolol Succinate 12.5 mg XL Tab PO SCH (09:01)
[2018-10-10 09:13] LABS: BASO % 0.3 % (0.0-2.0); EOS # 0.1 K/uL (0.0-0.7); EOS % 0.8 % (0.0-4.0); HEMOGLOBIN 15.1 g/dL (12.0-18.0); LYMPH # 2.2 K/uL (1.0-4.3); LYMPH % 22.5 % (20.0-40.0); MEAN CELL VOLUME 100.7 fL (80.0-94.0); MEAN CORPUSCULAR HEMOGLOBIN 33.9 pg (27.0-31.0); MEAN CORPUSCULAR HGB CONC 33.6 g/dL (33.0-37.0); MEAN PLATELET VOLUME 9.6 fL (7.2-11.7); MONO # 0.9 K/uL (0.0-0.8); MONO % 8.7 % (0.0-10.0); NEUT # 6.6 K/uL (1.8-7.0); NEUT % 67.7 % (50.0-75.0); NRBC % 0.1 % (0.0-2.0); RBC 4.45 Mil/uL (4.40-5.90); RED CELL DISTRIBUTION WIDTH 13.9 % (11.5-14.5); WHITE BLOOD COUNT 9.8 K/uL (4.8-10.8)
[2018-10-10 09:26] LABS: ALB/GLOB RATIO 1.3 (1.0-2.1); ALBUMIN 4.1 g/dL (3.5-5.0); ALT/SGPT 105 U/L (21-72); AST/SGOT 277 U/L (17-59); BLOOD UREA NITROGEN 20 mg/dL (9-20); CALCIUM 8.9 mg/dl (8.6-10.4); GFR NON-AFRICAN AMERICAN > 60
[2018-10-10 09:34] VITALS: TEMP 97.9
--- NOTE | 2018-10-10 09:36 | CP.PCM.DIS ---
<Maude Andrews - Last Filed: 10/10/18 19:32> Provider - Provider Date of Admission: 10/08/18 11:52 Attending physician: Lupe Lima DO Consults: 10/08/18 11:12 Cardiology Consult Stat Comment: Consulting Provider: Jennifer Can Consulting Physician: Jennifer Can Reason for Consult: code heart 10/09/18 16:42 Case Management Referral Routine Comment: Physician Instructions: Reason For Exam: Reason for Referral: Discharge Planning Time Spent in preparation of Discharge (in minutes): 40 Hospital Course - Lab Results Lab Results: Micro Results 10/08/18 14:15 Naris MRSA Culture (Admit) - Final MRSA NOT DETECTED Most Recent Lab Values WBC 9.8 K/uL (4.8-10.8) 10/10/18 09:05 RBC 4.45 Mil/uL (4.40-5.90) 10/10/18 09:05 Hgb 15.1 g/dL (12.0-18.0) 10/10/18 09:05 Hct 44.8 % (35.0-51.0) 10/10/18 09:05 MCV 100.7 fL (80.0-94.0) H 10/10/18 09:05 MCH 33.9 pg (27.0-31.0) H 10/10/18 09:05 MCHC 33.6 g/dL (33.0-37.0) 10/10/18 09:05 RDW 13.9 % (11.5-14.5) 10/10/18 09:05 Plt Count 264 K/uL (130-400) 10/10/18 09:05 MPV 9.6 fL (7.2-11.7) 10/10/18 09:05 Neut % (Auto) 67.7 % (50.0-75.0) 10/10/18 09:05 Lymph % (Auto) 22.5 % (20.0-40.0) 10/10/18 09:05 [place] % (Auto) 8.7 % (0.0-10.0) 10/10/18 09:05 Eos % (Auto) 0.8 % (0.0-4.0) 10/10/18 09:05 Baso % (Auto) 0.3 % (0.0-2.0) 10/10/18 09:05 Neut # (Auto) 6.6 K/uL (1.8-7.0) 10/10/18 09:05 Lymph # (Auto) 2.2 K/uL (1.0-4.3) 10/10/18 09:05 [place] # (Auto) 0.9 K/uL (0.0-0.8) H 10/10/18 09:05 Eos # (Auto) 0.1 K/uL (0.0-0.7) 10/10/18 09:05 Baso # (Auto) 0.0 K/uL (0.0-0.2) 10/10/18 09:05 Neutrophils % (Manual) 93 % (50-75) H 10/08/18 11:44 Lymphocytes % (Manual) 4 % (20-40) L 10/08/18 11:44 Monocytes % (Manual) 3 % (0-10) 10/08/18 11:44 Platelet Estimate Normal (NORMAL) 10/08/18 11:44 RBC Morphology Normal 10/08/18 11:44 PT 11.2 SECONDS (9.7-12.2) 10/08/18 11:44 INR 1.0 10/08/18 11:44 APTT 56 SECONDS (21-34) H 10/08/18 11:44 Sodium 137 mmol/L (132-148) 10/10/18 09:05 Potassium 3.9 mmol/L (3.6-5.2) 10/10/18 09:05 Chloride 105 mmol/L (98-107) 10/10/18 09:05 Carbon Dioxide 26 mmol/L (22-30) 10/10/18 09:05 Anion Gap 11 (10-20) 10/10/18 09:05 BUN 20 mg/dL (9-20) 10/10/18 09:05 Creatinine 0.8 mg/dL (0.8-1.5) 10/10/18 09:05 Est GFR ( Amer) > 60 10/10/18 09:05 Est GFR (Non-Af Amer) > 60 10/10/18 09:05 Random Glucose 105 mg/dL (75-110) D 10/10/18 09:05 Hemoglobin A1c 6.0 % (4.2-6.5) 10/09/18 05:50 Calcium 8.9 mg/dl (8.6-10.4) 10/10/18 09:05 Phosphorus 2.7 mg/dL (2.5-4.5) 10/10/18 09:05 Magnesium 2.0 mg/dL (1.6-2.3) 10/10/18 09:05 Total Bilirubin 1.6 mg/dL (0.2-1.3) H 10/10/18 09:05 AST 277 U/L (17-59) H D 10/10/18 09:05 ALT 105 U/L (21-72) H D 10/10/18 09:05 Alkaline Phosphatase 85 U/L (38-126) 10/10/18 09:05 Lactate Dehydrogenase 645 U/L (313-618) H 10/08/18 11:44 Total Creatine Kinase 5849 U/L (55-170) H 10/09/18 06:00 CK-MB (Mass) 213 ng/mL (0.0-3.38) H 10/09/18 06:00 Troponin I 164.0000 ng/mL (0.00-0.120) H* 10/09/18 06:00 Total Protein 7.3 g/dL (6.3-8.3) 10/10/18 09:05 Albumin 4.1 g/dL (3.5-5.0) 10/10/18 09:05 Globulin 3.2 gm/dL (2.2-3.9) 10/10/18 09:05 Albumin/Globulin Ratio 1.3 (1.0-2.1) 10/10/18 09:05 Triglycerides 124 mg/dL (0-149) 10/09/18 05:50 Cholesterol 163 mg/dL (0-199) 10/09/18 05:50 LDL Cholesterol Direct 111 mg/dL (0-129) 10/09/18 05:50 HDL Cholesterol 38 mg/dL (30-70) 10/09/18 05:50 Free T4 0.80 ng/dL (0.78-2.19) 10/09/18 05:50 TSH 3rd Generation 0.20 mIU/L (0.46-4.68) L 10/09/18 05:50 Hepatitis A IgM Ab Negative (NEGATIVE) 10/09/18 08:16 Hep Bs Antigen Negative (NEGATIVE) 10/09/18 08:16 Hep B Core IgM Ab Negative (NEGATIVE) 10/09/18 08:16 Hepatitis C Antibody Negative (NEGATIVE) 10/09/18 08:16 Blood Type O POSITIVE 10/08/18 11:52 Antibody Screen Negative 10/08/18 11:52 - Hospital Course Hospital Course: This is a 63 year old male, originally from [place], with past medical hx of personal tobacco abuse, also significant secondhand smoke exposure, presenting today with chief complaint of chest pain. Pt brought in by EMS. Patient is afghan speaking only. Hx obtained through step daughter. Pt says that as patient was getting ready for work this morning around 7:30 am, began feeling some chest tightness and pressure and overall not feeling right. Reports this has never happened before. Reports pain was diffuse across chest with no radiation to jaw or arm. Pain was constant with severity of 9/10. Patient did not take any medications at home to alleviate pain. Initially patient was going to ride it out but began shaking and feeling pale, decision was made to call ambulance. PMD: None; reports he has not seen a doctor in an outpatient setting in many years. PMH: Tobacco abuse, secondhand smoke exposure () PSH: Denies Allergies: NKDA FH: Mother- Father- Reports family hx of DM. Otherwise denies hx of heart dx, cancer, etc. Current medications: None Social hx: Current smoker. Cutting down now but but pack per day for over 20 yrs. Social drinker. No drug use. Born in [place]. 7 children. 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 Prior visits: Recent ER visit 07/2018 for lower back pain. No prior admissions. Code status: Stepdaughter reports this has not been discussed yet. Advance directive: None Healthcare proxy: None. Hospital Course: Patient was brought to the ER for chest pain and was found to have a STEMI. Cardiology, Dr. Can was notified and patient was taken to the cathead operator and received a drug-eluting stent to the RCA. Patient admitted to the ICU after procedure. Patient was started on various medications are noted below. Patient was transferred to telemetry floor on 10/09/18. Echocardiogram was performed which showed an EF 50% and normal systolic function. After speaking with cardiology patient was stable for discharge home with Plavix and Aspirin instead of Brillinta as patient does not have insurance at this time. Encouraged patient extensively by various providers to stop smoking as it is a risk factor for heart disease. Discussed with patient to please continue medications: Lisinopril 2.5mg one tablet daily Losartan 25mg one tablet daily Metoprolol Succinate 12.5mg one tablet daily Aspirin 81mg one tablet daily Plavix 75mg one tablet daily Crestor 20mg one tablet in the evening Patient to follow up with aids counselor Dr. Can one week after discharge. Patient follow up with the [facility]: [place] [address] #[phone] This is a summary of the patient's hospital course. Please refer to EMR for complete details. Assessment and Plan (1) STEMI (ST elevation myocardial infarction) Assessment & Plan: Cardiology on consult help appreciated Echocardiogram pending Aspirin 81 mg 1 tab p.o. daily Brilinta 90 mg once a day once twice a day will need to discuss with cardiology if appropriate to switch to Plavix given patient does not have insurance Crestor on hold given transaminitis Losartan 25 once a day Start Toprol-XL 12.5 mg once a day Lipid panel reviewed noted below 80 HDL TSH is low but free T4 is normal Pending official cardiac cath report however patient did receive a drug-eluting stent to the RCA. A1c pending Status: Acute (2) Tobacco abuse Assessment & Plan: Patient counseled extensively at bedside in regards to smoking is a risk factor for heart disease he is aware he should stop smoking Nicotine patch daily Status: Acute (3) Transaminitis Assessment & Plan: Patient had an acute rise in LFTs Discontinue Tylenol and Held Crestor Hepatitis panel we will continue to trend LFTs unclear which relieved as an acute phase reactant or hyperperfusion delivered in light of a heart attack Status: Acute (4) Prophylactic measure Assessment & Plan: DVT prophylaxis heparin 5000 subcu 8 Heart healthy diet Smoking cessation provided Discharge Exam - Head Exam Head Exam: ATRAUMATIC, NORMAL INSPECTION - Eye Exam Eye Exam: EOMI, Normal appearance - ENT Exam ENT Exam: Mucous Membranes Moist - Respiratory Exam Respiratory Exam: Clear to PA & Lateral, NORMAL BREATHING PATTERN - Cardiovascular Exam Cardiovascular Exam: REGULAR RHYTHM, +S1, +S2 - GI/Abdominal Exam GI & Abdominal Exam: Normal Bowel Sounds, Soft. absent: Tenderness - Extremities Exam Extremities exam: normal inspection - Neurological Exam Neurological exam: Alert, Oriented x3 - Psychiatric Exam Psychiatric exam: Normal Affect - Skin Skin Exam: Normal Color Discharge Plan - Discharge Medications Prescriptions: Aspirin [Ecotrin] 81 mg PO DAILY #30 tabec Clopidogrel Bisulfate [Plavix] 75 mg PO DAILY #30 tablet Losartan [Cozaar] 25 mg PO DAILY #30 tab Metoprolol Succinate XL [Toprol XL] 12.5 mg PO DAILY #30 tab Rosuvastatin Calcium [Crestor] 20 mg PO HS #30 tab - Follow Up Plan Condition: FAIR Disposition: HOME/ ROUTINE Instructions: Quitting Smoking for Older Adults, Aspirin to Prevent Heart Att acks, Cancer, and Additional Instructions: Please continue medications: Lisinopril 2.5mg one tablet daily Losartan 25mg one tablet daily Metoprolol Succinate 12.5mg one tablet daily Aspirin 81mg one tablet daily Plavix 75mg one tablet daily Crestor 20mg one tablet in the evening Please follow up with aids counselor Dr. Can one week after discharge. Please follow up with the [facility]: [place] [address] #[phone] Por favor contine con los medicamentos: Lisinopril 2,5 mg pop tableta al da Losartan 25 mg pop tableta diaria Metoprolol Succinate 12.5mg pop tableta diaria Aspirina 81 mg pop tableta diaria Plavix 75 mg pop tableta diaria Crestor 20 mg pop tableta en la noche Por favor venecia un seguimiento con el cardilogo Dr. Can pop semana despus del kip. Por favor venecia un seguimiento con [facility]: [place] [address] #[phone] Referrals: Jennifer Can MD [Staff Provider] - Carolyn Mcclain MD [Staff Provider] - <Lupe Lima V - Last Filed: 10/10/18 22:20> Provider - Provider Date of Admission: 10/08/18 11:52 Attending physician: Lupe Lima DO Consults: 10/08/18 11:12 Cardiology Consult Stat Comment: Consulting Provider: Jennifer Can Consulting Physician: Jennifer Can Reason for Consult: code heart 10/09/18 16:42 Case Management Referral Routine Comment: Physician Instructions: Reason For Exam: Reason for Referral: Discharge Planning Diagnosis - Discharge Diagnosis (1) STEMI (ST elevation myocardial infarction) Status: Acute (2) Tobacco abuse Status: Acute (3) Transaminitis Status: Acute (4) Prophylactic measure Status: Acute Hospital Course - Lab Results Lab Results: Micro Results 10/09/18 17:45 Naris MRSA Culture - Final MRSA NOT DETECTED 10/08/18 14:15 Naris MRSA Culture (Admit) - Final MRSA NOT DETECTED Most Recent Lab Values WBC 9.8 K/uL (4.8-10.8) 10/10/18 09:05 RBC 4.45 Mil/uL (4.40-5.90) 10/10/18 09:05 Hgb 15.1 g/dL (12.0-18.0) 10/10/18 09:05 Hct 44.8 % (35.0-51.0) 10/10/18 09:05 MCV 100.7 fL (80.0-94.0) H 10/10/18 09:05 MCH 33.9 pg (27.0-31.0) H 10/10/18 09:05 MCHC 33.6 g/dL (33.0-37.0) 10/10/18 09:05 RDW 13.9 % (11.5-14.5) 10/10/18 09:05 Plt Count 264 K/uL (130-400) 10/10/18 09:05 MPV 9.6 fL (7.2-11.7) 10/10/18 09:05 Neut % (Auto) 67.7 % (50.0-75.0) 10/10/18 09:05 Lymph % (Auto) 22.5 % (20.0-40.0) 10/10/18 09:05 [place] % (Auto) 8.7 % (0.0-10.0) 10/10/18 09:05 Eos % (Auto) 0.8 % (0.0-4.0) 10/10/18 09:05 Baso % (Auto) 0.3 % (0.0-2.0) 10/10/18 09:05 Neut # (Auto) 6.6 K/uL (1.8-7.0) 10/10/18 09:05 Lymph # (Auto) 2.2 K/uL (1.0-4.3) 10/10/18 09:05 [place] # (Auto) 0.9 K/uL (0.0-0.8) H 10/10/18 09:05 Eos # (Auto) 0.1 K/uL (0.0-0.7) 10/10/18 09:05 Baso # (Auto) 0.0 K/uL (0.0-0.2) 10/10/18 09:05 Neutrophils % (Manual) 93 % (50-75) H 10/08/18 11:44 Lymphocytes % (Manual) 4 % (20-40) L 10/08/18 11:44 Monocytes % (Manual) 3 % (0-10) 10/08/18 11:44 Platelet Estimate Normal (NORMAL) 10/08/18 11:44 RBC Morphology Normal 10/08/18 11:44 PT 11.2 SECONDS (9.7-12.2) 10/08/18 11:44 INR 1.0 10/08/18 11:44 APTT 56 SECONDS (21-34) H 10/08/18 11:44 Sodium 137 mmol/L (132-148) 10/10/18 09:05 Potassium 3.9 mmol/L (3.6-5.2) 10/10/18 09:05 Chloride 105 mmol/L (98-107) 10/10/18 09:05 Carbon Dioxide 26 mmol/L (22-30) 10/10/18 09:05 Anion Gap 11 (10-20) 10/10/18 09:05 BUN 20 mg/dL (9-20) 10/10/18 09:05 Creatinine 0.8 mg/dL (0.8-1.5) 10/10/18 09:05 Est GFR ( Amer) > 60 10/10/18 09:05 Est GFR (Non-Af Amer) > 60 10/10/18 09:05 Random Glucose 105 mg/dL (75-110) D 10/10/18 09:05 Hemoglobin A1c 6.0 % (4.2-6.5) 10/09/18 05:50 Calcium 8.9 mg/dl (8.6-10.4) 10/10/18 09:05 Phosphorus 2.7 mg/dL (2.5-4.5) 10/10/18 09:05 Magnesium 2.0 mg/dL (1.6-2.3) 10/10/18 09:05 Total Bilirubin 1.6 mg/dL (0.2-1.3) H 10/10/18 09:05 AST 277 U/L (17-59) H D 10/10/18 09:05 ALT 105 U/L (21-72) H D 10/10/18 09:05 Alkaline Phosphatase 85 U/L (38-126) 10/10/18 09:05 Lactate Dehydrogenase 645 U/L (313-618) H 10/08/18 11:44 Total Creatine Kinase 5849 U/L (55-170) H 10/09/18 06:00 CK-MB (Mass) 213 ng/mL (0.0-3.38) H 10/09/18 06:00 Troponin I 164.0000 ng/mL (0.00-0.120) H* 10/09/18 06:00 Total Protein 7.3 g/dL (6.3-8.3) 10/10/18 09:05 Albumin 4.1 g/dL (3.5-5.0) 10/10/18 09:05 Globulin 3.2 gm/dL (2.2-3.9) 10/10/18 09:05 Albumin/Globulin Ratio 1.3 (1.0-2.1) 10/10/18 09:05 Triglycerides 124 mg/dL (0-149) 10/09/18 05:50 Cholesterol 163 mg/dL (0-199) 10/09/18 05:50 LDL Cholesterol Direct 111 mg/dL (0-129) 10/09/18 05:50 HDL Cholesterol 38 mg/dL (30-70) 10/09/18 05:50 Free T4 0.80 ng/dL (0.78-2.19) 10/09/18 05:50 TSH 3rd Generation 0.20 mIU/L (0.46-4.68) L 10/09/18 05:50 Hepatitis A IgM Ab Negative (NEGATIVE) 10/09/18 08:16 Hep Bs Antigen Negative (NEGATIVE) 10/09/18 08:16 Hep B Core IgM Ab Negative (NEGATIVE) 10/09/18 08:16 Hepatitis C Antibody Negative (NEGATIVE) 10/09/18 08:16 Blood Type O POSITIVE 10/08/18 11:52 Antibody Screen Negative 10/08/18 11:52 Attending/Attestation - Attestation I have personally seen and examined this patient.: Yes I have fully participated in the care of the patient.: Yes I have reviewed all pertinent clinical information, including history, physical exam and plan: Yes Notes (Text): Patient seen, examined and case discussed with day-time resident. Patient seen this morning. patient denies acute complaints. Patient was transferred out from the ICU yesterday. He is aware he needs to stop smoking. He is aware he needs to take five medications daily for his heart. He is also aware he has any shortness of breathe, chest pain, palpitations, fatigue to come back immediately for evaluation. Resident has spoken with cardiology, stable from cardiology standpoint for discharge. medications on discharge: 1) aspirin 81mg Po daily 2) plavix 75mg PO daily 3) toprol XL 12.5mg PO daily 4) Losartan 25mg PO daily 5) crestor 20mgPOqhs Will call in AM to d/c lisinopril which is in error. Patient advised to follow-up and establish care at [facility]; will need cardiology referral for follow-up. Will need repeat LFTS on discharge. This is a brief summary of patient's hospitalization. Please see EMR for full record and detail. Assessment/Plan (1) STEMI (ST elevation myocardial infarction) s/p AMISH RCA Coronary Artery Disease Assessment & Plan: * Cardiology on consult help appreciated * Echocardiogram official report noted; * Aspirin 81 mg 1 tab p.o. daily * Brilinta 90 mg once a day once twice a day switch to Plavix 75mg PO daily given patient's lack of insurance * Losartan 25 once a da * Toprol-XL 12.5 mg once a da * Lipid panel reviewed noted below 80 HD * TSH is low but free T4 is normal * [id number] 6.0 * Cardiac cath report however patient did receive a drug-eluting stent to the RCA. Status: Acute (2) Tobacco abuse Assessment & Plan: * Patient counseled extensively at bedside in regards to smoking is a risk factor for heart disease he is aware he should stop smoking * Nicotine patch daily Status: Acute (3) Transaminitis Assessment & Plan: * Patient had an acute rise in LFTs initially * Discontinue Tylenol * Held Crestor * Hepatitis panel: negative we will continue to trend LFTs unclear which relieved as an acute phase reactant or hyperperfusion delivered in light of a heart attack Status: Acute (4) Prophylactic measure Assessment & Plan: * DVT prophylaxis heparin 5000 subcu 8 * Heart healthy diet * Smoking cessation provided
--- NOTE | 2018-10-10 10:26 | CARD ---
APPROVED REPORT Date of service: 10/08/2018 EXAM: Two-dimensional and M-mode echocardiogram with Doppler and color Doppler. Other Information Quality : GoodRhythm : INDICATION Abnormal EKG/Arrhythmia Chest Pain Status/Post MS Surgery/Intervention 2D DIMENSIONS IVSd1.4 (0.7-1.1cm)LVDd4.6 (3.9-5.9cm) PWd1.1 (0.7-1.1cm)LA Qnunzo27 (18-58mL) LVDs3.6 (2.5-4.0cm)FS (%) 20.9 % LVEF (%)50.0 (>50%)LVEF (Valdivia's)49.87 % M-Mode DIMENSIONS Left Atrium (MM)3.77 (2.5-4.0cm)IVSd1.28 (0.7-1.1cm) Aortic Root3.49 (2.2-3.7cm)LVDd5.12 (4.0-5.6cm) Aortic Cusp Exc.2.09 (1.5-2.0cm)PWd1.21 (0.7-1.1cm) FS (%) 29 %LVDs3.65 (2.0-3.8cm) LVEF (%)50 (>50%) Mitral Valve MV E Dszakxdl37.5cm/sMV A Zbenbisg891.9cm/sE/A ratio0.6 TDI Lateral E' Peak V6.29cm/sMedial E' Peak V3.71cm/sE/Lateral E'10.7 E/Medial E'18.2 Tricuspid Valve TR Peak Jkmusulm269cc/sTR Peak Gr.[id number] LEFT VENTRICLE The left ventricle is normal size. There is mild concentric left ventricular hypertrophy. The left ventricular function is normal. The left ventricular ejection fraction is within the normal range. There is normal LV segmental wall motion. Transmitral Doppler flow pattern is abnormal. RIGHT VENTRICLE The right ventricle is normal size. ATRIA The left atrium size is normal. The right atrium size is normal. AORTIC VALVE The aortic valve is normal in structure. MITRAL VALVE Mitral regurgitation is trace. TRICUSPID VALVE There is mild tricuspid regurgitation. <Conclusion> Normal LV systolic function. Diastolic dysufunction. Normal chamber size. Trace MR. Mild TR
[2018-10-10 12:14] VITALS: PULSE 70
--- NOTE | 2018-10-11 12:48 | CARD ---
APPROVED REPORT Date of service: 10/08/2018 EKG Measurement Heart [id number] <Conclusion> Sinus rhythm with premature atrial complexes Left axis deviation Inferior infarct, age undetermined Abnormal ECG
--- NOTE | 2018-10-12 22:18 | CATH ---
APPROVED REPORT Date of service: 10/08/2018 Procedure(s) performed: Cardiac catheterization and Angioplasty ans stenting of RCA. HISTORY : The patient is a 63 year-old male with a history of . INDICATION The indication(s) include : STEMI (>0 to less than or equal to 6 hours). CASE TECHNIQUE The patient was brought urgently to the Cardiac Catheterization Laboratory in a fasting state and was prepped and draped in a sterile manner. The right femoral groin was infiltrated with 2% Lidocaine subcutaneous anesthesia. A 6 F sheath was inserted into the right femoral artery without difficulty. Coronary angiography was performed using coronary diagnostic catheters. The left coronary system was accessed and visualized with a 6 F JR 4 catheter. The right coronary system was accessed and visualized with a Guided catheter. Pre-demployment femoral angiogram was performed . Closure device was deployed with a 6 Fr Angioseal without any complications. Vessel Analysis The patient's coronary anatomy is right dominant. The left main coronary artery is a medium size vessel with intimal irregularities. The left anterior descending artery is a medium size vessel . There is a 75% stenosis in the mid segment. The first diagonal branch is a medium size vessel . There is a 75% stenosis in the proximal segment. The circumflex artery is a medium size vessel . There is a 55% stenosis in the distal segment. The first obtuse marginal branch is a medium size vessel . There is a 80% stenosis in the ostial segment. The right coronary artery is a large size vessel . There is a 100% stenosis in the proximal segment. PCI Technique Lesion Anticoagulation was achieved with Heparin. Percutaneous coronary intervention was performed on the proximal right coronary artery. The lesion stenosis prior to intervention was 100% with CARMEN 0 flow. A 6 F Guide Catheter was used to engage the RCA ostium. BALLOON DILATION A Balloon catheter 2.5X12 was inserted and inflated up to 10atm for 30seconds. Repeat angiography revealed the following post-dilatation results: 90% in the proximal. STENT DEPLOYMENT A drug-eluting stent 3.5X18 was inserted and inflated up to 12atm for 30seconds. Final angiography reveals 0 % stenosis with CARMEN 3 flow. Conclusion Multi-vessel disease. Successful PTCA/Stent of the RCA. Recommendations Smoking Cessation DAPT compliance. Risk factor modification.
--- NOTE | 2018-10-13 12:14 | CARD ---
APPROVED REPORT Date of service: 10/08/2018 EKG Measurement Heart [id number] <Conclusion> Sinus rhythm with sinus arrhythmia with 1st degree AV block Inferior infarct, possibly acute Anterolateral injury pattern ACUTE IN / STEMI Consider right ventricular involvement in acute inferior infarct Abnormal ECG
== END 2018-10-10 13:05 | disposition home or self-care (01) | DRG 247 ==
LOC: C.ER 11:35 → C.9I 11:44 → C.5S 10-09 14:42
PROVIDERS: ADMIT Hospitalist; ATTEND Hospitalist
PROC: 027034Z Dilation of Coronary Artery, One Artery with Drug-eluting Intraluminal Device, Percutaneous Approach (ICD-10-PCS; principal; 2018-10-08)
PROC: 4A023N7 Measurement of Cardiac Sampling and Pressure, Left Heart, Percutaneous Approach (ICD-10-PCS; 2018-10-08)
PROC: B2151ZZ Fluoroscopy of Left Heart using Low Osmolar Contrast (ICD-10-PCS; 2018-10-08)
PROC: B2111ZZ Fluoroscopy of Multiple Coronary Arteries using Low Osmolar Contrast (ICD-10-PCS; 2018-10-08)
DX: I21.19 ST elevation (STEMI) myocardial infarction involving other coronary artery of inferior wall (principal); I25.10 Atherosclerotic heart disease of native coronary artery without angina pectoris; R74.0 Nonspecific elevation of levels of transaminase and lactic acid dehydrogenase [LDH]; F17.210 Nicotine dependence, cigarettes, uncomplicated; Z77.22 Contact with and (suspected) exposure to environmental tobacco smoke (acute) (chronic); Z83.3 Family history of diabetes mellitus; Z79.899 Other long term (current) drug therapy

== ENCOUNTER 2018-11-17 12:35 | Outpatient (CLI) | payer MEDICAID | END 2018-11-17 12:36 | disposition home or self-care (01) | LOC: C.EKG 12:35 ==